=== PATIENT | male | born 1975 | race Caucasian/White ===

== ENCOUNTER 2022-01-05 13:54 | Emergency (ER) | payer OTHER ==
[2022-01-05 14:49] LABS: HEMOGLOBIN 15.7 gm/dl (14.0-17.5); RED BLOOD COUNT 5.16 M/UL (4.20-5.50); WHITE BLOOD COUNT 8.8 K/UL (4.5-11.0)
[2022-01-05 16:42] LABS: BUN/CREATININE RATIO 19 (0-10)
== END 2022-01-05 18:07 | disposition home or self-care (01) ==
LOC: ER1 13:54
PROVIDERS: Nurse Practitioner
DX: R11.2 Nausea with vomiting, unspecified (principal); F17.220 Nicotine dependence, chewing tobacco, uncomplicated; Z88.5 Allergy status to narcotic agent; Z79.899 Other long term (current) drug therapy; Z20.822 Contact with and (suspected) exposure to COVID-19
CPT/HCPCS: 0240U; 71045; 80053; 80076; 81001; 82550; 82553; 84484; 85025; 93005; 96360; 99285